=== PATIENT | female | born 1945 | race Two or more races ===

== ENCOUNTER 2019-07-02 07:51 | Outpatient (CLI) | payer OTHER ==
[~2019-07-02 07:51] MED LIST: ASA81 MG PO; ATACAND4 MG PO; GLUCOPHAGE XR500 MG PO; LIPITOR20 MG PO; NORVASC2.5 MG PO; PRILOSEC10 MG PO
== END 2019-07-02 09:42 | disposition home or self-care (01) ==
LOC: NUCLEAR 07:51
DX: I25.10 Atherosclerotic heart disease of native coronary artery without angina pectoris (principal); I11.9 Hypertensive heart disease without heart failure; E78.2 Mixed hyperlipidemia; E11.9 Type 2 diabetes mellitus without complications
CPT/HCPCS: 78452; 93017; A9500

== ENCOUNTER 2023-08-05 13:16 | Outpatient (CLI) | payer OTHER | END 2023-08-05 13:27 | disposition home or self-care (01) | LOC: MRI 13:16 | PROVIDERS: ATTEND Physical Medicine & Rehabilitation | DX: M51.26 Other intervertebral disc displacement, lumbar region (principal); S32.000A Wedge compression fracture of unspecified lumbar vertebra, initial encounter for closed fracture | CPT/HCPCS: 72148 ==

== ENCOUNTER 2023-08-26 10:29 | Outpatient (CLI) | payer OTHER | END 2023-08-26 10:41 | disposition home or self-care (01) | LOC: RAD 10:29 | PROVIDERS: ATTEND Physical Medicine & Rehabilitation | DX: S32.019A Unspecified fracture of first lumbar vertebra, initial encounter for closed fracture (principal) ==

== ENCOUNTER 2023-10-07 14:29 | Outpatient (CLI) | payer OTHER | END 2023-10-07 14:37 | disposition home or self-care (01) | LOC: TOM 14:29 | PROVIDERS: ATTEND Physical Medicine & Rehabilitation | DX: M51.26 Other intervertebral disc displacement, lumbar region (principal); S32.000A Wedge compression fracture of unspecified lumbar vertebra, initial encounter for closed fracture ==

== ENCOUNTER 2025-02-22 15:30 | Outpatient (CLI) | payer OTHER ==
[2025-02-22 16:12] LABS: CREATININE SERUM 0.77 mg/dL (0.55-1.02)
== END 2025-02-22 15:36 | disposition home or self-care (01) ==
LOC: LAB 15:30
DX: R10.11 Right upper quadrant pain (principal)

== ENCOUNTER 2025-02-23 08:16 | Outpatient (CLI) | payer OTHER | END 2025-02-23 08:29 | disposition home or self-care (01) | LOC: TOM 08:16 | PROVIDERS: ATTEND Internal Medicine Gastroenterology | DX: R10.31 Right lower quadrant pain (principal) ==